=== PATIENT | male | born 1995 | race Caucasian/White ===

== ENCOUNTER 2020-05-29 22:22 | Emergency (ER) | payer SELFPAY | END 2020-05-29 22:52 | disposition left against medical advice (07) | LOC: ER 22:22 | DX: R45.851 Suicidal ideations (principal); Z53.21 Procedure and treatment not carried out due to patient leaving prior to being seen by health care provider ==

== ENCOUNTER 2022-02-24 17:30 | Emergency (ER) | payer SELFPAY ==
[~2022-02-24] VITALS: Ht 177.8 cm; Wt 73.1 kg
[2022-02-24 18:00] VITALS: BP 136/64
--- NOTE | 2022-02-24 18:23 | PHYS DOC ---
Past History Past Medical History: No Pertinent History Past Surgical History: No Surgical History Smoking: Non-smoker Alcohol Use: None Drug Use: None General Adult EDM: Chief Complaint: SEXUALLY TRANSMITTED DISEASE HPI: HPI: ".. I notice about a day after unprotected sex... and got this discharge .. and now it hurt s like acid every time I pee...I ve started a work up at Health dept...".." But they did not want to started me on antibiotic yet... but now I am running a fever.. and feel like crap.. 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 and I can't go to work feeling like this.." Patient is a 26 year old male who presents with complaints of sexual transmitted disease. Patient states a day or 2 after unprotected sex with a female of question he developed dysuria, discharge and severe pain upon urination. Did follow-up with health department however they did not want to start treatment until their work-up was done. Patient has had previous STDs and chlamydia. Patient had approximately 50-60 different sexual partners in his lifetime. Patient denies any history of immunosuppression. No recent travel. Patient circumcised male. Testicles descended. Has obvious discharge. Does have tenderness of urethra. No appreciable adenopathy in groin area testicles nontender. Review of Systems: Review of Systems: Constitutional: Complains of fever Eyes: Denies change in visual acuity HENT: Denies nasal congestion or sore throat Respiratory: Denies cough or shortness of breath Cardiovascular: Denies chest pain or edema GI: Denies abdominal pain, nausea, vomiting, bloody stools or diarrhea : Complains of dysuria and penile discharge Musculoskeletal: Denies back pain or joint pain Integument: Denies rash Neurologic: Denies headache, focal weakness or sensory changes Endocrine: Denies polyuria or polydipsia Lymphatic: Denies swollen glands Psychiatric: Denies depression or anxiety Family History: Family History: Noncontributory to presentation Current Medications: Current Meds: See longterm meds Allergies: Allergies: No known drug allergies Physical Exam: PE: Constitutional: Well developed, well nourished, moderate acute distress, non- toxic appearance. [] HENT: Normocephalic, atraumatic, bilateral external ears normal, oropharynx moist, no oral exudates, nose normal. [] Eyes: PERRLA, EOMI, conjunctiva normal, no discharge. [] Neck: Normal range of motion, no tenderness, supple, no stridor. [] Cardiovascular:Heart rate regular rhythm, no murmur [] Lungs & Thorax: Bilateral breath sounds clear to auscultation [] Abdomen: Bowel sounds normal, soft, no tenderness, no masses, no pulsatile masses. Circumcised male. Testicles descended. Penile discharge. Some mild adenopathy in groin. Skin: Warm, dry, no erythema, no rash. [] Back: No tenderness, no CVA tenderness. [] Extremities: No tenderness, no cyanosis, no clubbing, ROM intact, no edema. [] Neurologic: Alert and oriented X 3, normal motor function, normal sensory function, no focal deficits noted. [] Psychologic: Affect anxious, judgement normal, mood normal. [] EKG: EKG: [] Radiology/Procedures: Radiology/Procedures: [] Heart Score: C/O Chest Pain: N/A Risk Factors: Risk Factors: DM, Current or recent (<one month) smoker, HTN, HLP, family history of CAD, obesity. Risk Scores: Score 0 - 3: 2.5% MACE over next 6 weeks - Discharge Home Score 4 - 6: 20.3% MACE over next 6 weeks - Admit for Clinical Observation Score 7 - 10: 72.7% MACE over next 6 weeks - Early Invasive Strategies Course & Med Decision Making: Course & Med Decision Making Pertinent Labs and Imaging studies reviewed. (See chart for details) Patient received doxycycline, Rocephin, and Flagyl while in ED. Patient push fluids. Take Tylenol and ibuprofen for discomfort and fevers. Not pawel sexual partner of possible STD. Patient should not have sex with another person unprotected until he knows infection is cleared . Recommend patient use barrier protection prevent further episodes of STDs. Patient take doxycycline 100 mg twice daily. Follow-up cultures. Return if any concerns. Keep follow-up with health department., For test results and HIV testing results. Impression: 1. Urethritis-suspect STD 2. Dysuria 3. Marijuana and tobacco use [] Dragon Disclaimer: Dragon Disclaimer: This electronic medical record was generated, in whole or in part, using a voice recognition dictation system. Departure Departure: Referrals: PCP,NO (PCP) Scripts Doxycycline Hyclate (DOXYCYCLINE HYCLATE) 100 Mg Tablet. 100 MG PO bib for STD for 14 Days, TAB Prov: JENAE BARDALES MD 02/24/22 Tiffany Disclaimer This chart was dictated in whole or in part using Voice Recognition software in a busy, high-work load, and often noisy Emergency Department environment. It may contain unintended and wholly unrecognized errors or omissions. JENAE BARDALES MD February 24, 2022 18:23
[2022-02-24] MEDS ORDERED: DOXY-96 PO (18:47)
[2022-02-24 19:06] LABS: BARBITURATES NEG (NEG); BENZODIAZEPINES NEG (NEG); CANNABINOIDS POS (NEG); COCAINE NEG (NEG); METHADONE NEG (NEG); OPIATES NEG (NEG); PHENCYCLIDINE NEG (NEG)
[2022-02-24 19:13] LABS: AMPHETAMINE/METHAMPHETAMINE NEG (NEG)
[2022-02-24] MEDS ORDERED: ACETAMINOPHEN 500 MG TABLET PO ONE (19:15)
[2022-02-24] MEDS ORDERED: DOXYCYCLINE HYCLATE 100 MG TABLET PO ONE (19:15)
[2022-02-24] MEDS ORDERED: ONDANSETRON ODT 4 MG TAB.RAPDIS PO ONE (19:15)
[2022-02-24] MEDS ORDERED: IBUPROFEN 600 MG TABLET. PO ONE (19:15)
[2022-02-24] MEDS ORDERED: cefTRIAXone IM 1 GM VIAL IM ONE (19:15)
[2022-02-24] MEDS ORDERED: metroNIDAZOLE 500 MG TABLET PO ONE (19:15)
[2022-02-24 19:24] LABS: CLARITY,URINE CLOUDY; COLOR,URINE YELLOW; GLUCOSE,URINE NEG (NEG)
[2022-02-24 19:25] LABS: BACTERIA,URINE FEW /HPF (0-FEW); NITRITE,URINE NEG (NEG); UROBILINOGEN,URINE >=8.0 mg/dL (0.2 mg/dL); WBC,URINE >40 /HPF (0-4)
== END 2022-02-24 19:49 | disposition home or self-care (01) ==
LOC: ER 17:30
DX: N34.2 Other urethritis (principal); R30.0 Dysuria; F12.90 Cannabis use, unspecified, uncomplicated; Z72.0 Tobacco use
CPT/HCPCS: 36415; 80307; 81001; 87086; 87491; 87591; 96372; 99284; J0696; Q0162